=== PATIENT | female | born 1980 | race Caucasian/White ===

== ENCOUNTER 2018-12-29 17:32 | Emergency (ER) | payer MEDICAID ==
[2018-12-29] MEDS: KETOROLAC 30 MG INJ IM (19:29)
== END 2018-12-29 20:10 | disposition home or self-care (01) ==
LOC: FTE 17:32
DX: S46.811A Strain of other muscles, fascia and tendons at shoulder and upper arm level, right arm, initial encounter (principal); X50.0XXA Overexertion from strenuous movement or load, initial encounter; Y92.89 Other specified places as the place of occurrence of the external cause
CPT/HCPCS: 81025; 96372; 99284-25